=== PATIENT | male | born 1990 | race African-American/Black ===

== ENCOUNTER 2016-12-07 18:17 | Emergency (ER) | payer OTHER ==
[~2016-12-07] VITALS: Ht 172.7 cm; Wt 63.5 kg
[2016-12-07 18:45] VITALS: BP 139/65
--- NOTE | 2016-12-07 19:14 | PHYS DOC ---
Past Medical History Past Medical History: No Pertinent History Past Surgical History: No Surgical History Alcohol Use: None Drug Use: None Adult General Chief Complaint Chief Complaint: HEADACHE HPI HPI Patient is a 26 year old male presents emergency room the complain of fever, sore throat, runny nose, nonproductive cough and body aches that began last night. He denies any contact with anyone with similar symptoms. He denies any history of cardiopulmonary disease. He states he's a nonsmoker. Patient denies hospitalization, antibiotic use or foreign travel within the past 90 days. Patient denies taking any antipyretics before coming into the emergency Department today. Review of Systems Review of Systems Constitutional: Denies fever or chills [] Eyes: Denies change in visual acuity, redness, or eye pain [] HENT: Denies nasal congestion or sore throat [] Respiratory: Denies cough or shortness of breath [] Cardiovascular: No additional information not addressed in HPI [] GI: Denies abdominal pain, nausea, vomiting, bloody stools or diarrhea [] : Denies dysuria or hematuria [] Musculoskeletal: Denies back pain or joint pain [] Integument: Denies rash or skin lesions [] Neurologic: Denies headache, focal weakness or sensory changes [] Endocrine: Denies polyuria or polydipsia [] Current Medications Current Medications Current Medications Medications (Trade) Dose Ordered Sig/Sabino Start Time Stop Time Status Last Admin Dose Admin Ibuprofen (Motrin) 600 mg 1X ONCE 12/07/16 19:15 12/07/16 19:16 DC 12/07/16 19:03 600 MG Allergies Allergies Allergies Coded Allergies Type Severity Reaction Last Updated Verified No Known Drug Allergies 02/05/14 No Physical Exam Physical Exam Constitutional: Well developed, well nourished, no acute distress, non-toxic appearance. temperatures of 100.2 oral. HENT: Normocephalic, atraumatic, bilateral external ears normal, oropharynx moist, no oral exudates, nose normal. There is no trismus or hot potato speech. Posterior oropharynx is pink and moist without tonsillar swelling, tonsillar plaques, peritonsillar swelling or uvular deviation. Eyes: PERRLA, EOMI, conjunctiva normal, no discharge. [] Neck: Normal range of motion, no tenderness, supple, no stridor. There is no meningismus. There is bilateral anterior and posterior cervical lymphadenopathy. Cardiovascular:Heart rate regular rhythm, no murmur [] Lungs & Thorax: Bilateral breath sounds clear to auscultation Abdomen: Bowel sounds normal, soft, no tenderness, no masses, no pulsatile masses. [] Skin: Warm, dry, no erythema, no rash. [] Back: No tenderness, no CVA tenderness. [] Extremities: No tenderness, no cyanosis, no clubbing, ROM intact, no edema. [] Neurologic: Alert and oriented X 3, normal motor function, normal sensory function, no focal deficits noted. [] Psychologic: Affect normal, judgement normal, mood normal. [] Current Patient Data Vital Signs Vital Signs Date Time Temp Pulse Resp B/P Pulse Ox O2 Delivery O2 Flow Rate FiO2 12/07/16 18:45 100.2 86 16 98 Room Air 100.2 Lab Values Laboratory Tests Test 12/07/16 18:56 Influenza Type A Antigen Negative (NEGATIVE) Influenza Type B Antigen Negative (NEGATIVE) EKG EKG [] Radiology/Procedures Radiology/Procedures [] Course & Med Decision Making Course & Med Decision Making Influenza test are today are negative. Dragon Disclaimer Dragon Disclaimer This electronic medical record was generated, in whole or in part, using a voice recognition dictation system. Departure Departure Impression: Primary Impression: Upper respiratory infection Additional Impression: Fever Disposition: 01 HOME, SELF-CARE Condition: GOOD Referrals: NO PCP (PCP) Patient Instructions: Fever, Adult, [id number], Upper Respiratory Infection, Adult, [id number] Additional Instructions: 1. The influenza test here today are negative. Your symptoms are consistent with influenza-type symptoms. 2. Review the discharge instructions provided for guidelines on self care and reasons to return to the emergency department. 3. Acetaminophen every 4-6 hours or ibuprofen every 8 hours for the fever and body aches. Keep yourself hydrated by drinking 8-10, 10 ounce glasses of water daily. 4. Follow-up with a primary care doctor on Friday or Friday of this coming week for reevaluation. Use the pamphlet provided for assistance in finding one. Scripts Benzonatate 200 Mg Capsule1 Cap PO TID COUGH #30 CAP Prov:JUSTYN BORJAS 12/07/16 Problem Qualifiers Primary Impression: Upper respiratory infection URI type: unspecified URI Qualified Code: J06.9 - Acute upper respiratory infection, unspecified Additional Impression: Fever Fever type: unspecified Qualified Code: R50.9 - Fever, unspecified JUSTYN BORJAS Dec 07, 2016 19:14
[2016-12-07] MEDS ORDERED: IBUPROFEN 600 MG TABLET. PO ONE (19:15)
[2016-12-07 19:56] LABS: OBC FLU VALID
[2016-12-07] MEDS ORDERED: BENZ200C39 PO (19:59)
== END 2016-12-07 20:05 | disposition home or self-care (01) ==
LOC: ER 18:17
DX: J06.9 Acute upper respiratory infection, unspecified (principal)
CPT/HCPCS: 87804; 99284